=== PATIENT | female | born 1975 | race Two or more races ===

== ENCOUNTER 2018-03-11 07:29 | Emergency (ER) | payer SELFPAY ==
[2018-03-11] MEDS ORDERED: Sodium Chloride 0.9% 500 ML IV ONE (07:49)
[2018-03-11] MEDS ORDERED: Acetaminophen 325 MG Tab PO ONE (07:51)
--- NOTE | 2018-03-11 07:57 | EDM.PDOC ---
ED HPI GENERAL MEDICAL PROBLEM - General Chief Complaint: Neurological Problem Stated Complaint: NUMBNESS OF LEFT SIDE Time Seen by Provider: 03/11/18 07:32 Source of Information: Reports: Patient History Limitations: Reports: No Limitations - History of Present Illness INITIAL COMMENTS - FREE TEXT/NARRATIVE: History of present illness: []She has history of hypertension that is partially treated. He was given a prescription for hydrochlorothiazide by her primary doctor and told her to take it if she feels like her blood pressure is high. 3 days ago she felt pounding in her chest took her blood pressure and it was 180/100 so she took one 12.5 mg tablet. Patient states she felt better the next day so she continues to take the 12.5 mg tablet the next day. Her blood pressure has remained in the 140s/ 90s. She took 2 tablets yesterday and awoke this morning with a left sided headache. Patient states she feels some swelling in her left cheek and is concerned she may be having a stroke. Review of systems: As per history of present illness and below otherwise all systems reviewed and negative. Past medical history: As per history of present illness and as reviewed below otherwise noncontributory. Surgical history: As per history of present illness and as reviewed below otherwise noncontributory. Social history: No reported history of drug or alcohol abuse. Family history: As per history of present illness and as reviewed below otherwise noncontributory. Physical exam: General: Well developed, well nourished in NAD. speech clear HEENT: Atraumatic, normocephalic, pupils reactive, negative for conjunctival pallor or scleral icterus, mucous membranes moist, throat clear, neck supple, nontender, trachea midline. Lungs: Clear to auscultation, breath sounds equal bilaterally, chest nontender. Heart: S1S2, regular, negative for clicks, rubs, or JVD. Abdomen: Soft, nondistended, nontender. Negative for masses or hepatosplenomegaly. Negative for costovertebral tenderness. Pelvis: Stable nontender. Genitourinary: Deferred. Rectal: Deferred. Extremities: Atraumatic, negative for cords or calf pain. Neurovascular unremarkable. Neuro: Awake, alert, oriented. Cranial nerves II through XII unremarkable. Cerebellum unremarkable. Motor and sensory unremarkable throughout. Exam nonfocal. Equal strength bilaterally, lower extremities diminished slightly Skin:warm and dry Diagnostics: EKG, CBC, chemistry, troponin all negative Therapeutics: IV fluids ED Course: Unremarkable Impression: High blood pressure Prescriptions: None Plan: Definitive disposition and diagnosis as appropriate pending reevaluation and review of above. Left Headache Pain Score (Numeric/FACES): 4 - Related Data Allergies Allergy/AdvReac Type Severity Reaction Status Date / Time No Known Allergies Allergy Verified 03/11/18 07:46 Home Meds: Home Meds . [No Known Home Meds] 03/11/18 [History] ED ROS GENERAL - Review of Systems Review Of Systems: ROS reveals no pertinent complaints other than HPI. ED EXAM, GENERAL - Physical Exam Exam: See Below (See history of present illness) Course - Vital Signs Last Recorded V/S: Last Vital Signs Temp 97.5 F 03/11/18 07:40 Pulse 108 H 03/11/18 07:40 Resp 18 03/11/18 07:40 BP 148/95 H 03/11/18 07:40 Pulse Ox 97 03/11/18 07:40 - Orders/Labs/Meds Orders: Active Orders 24 hr Category Date Time Status EKG Documentation Completion [RC] STAT Care 03/11/18 07:37 Active EKG Documentation Completion [RC] STAT Care 03/11/18 07:49 Inactive Sodium Chloride 0.9% [Normal Saline] 500 ml Med 03/11/18 08:15 Active IV .BOLUS Medication Orders Sodium Chloride (Normal Saline) 500 mls @ 999 mls/hr IV .BOLUS ROSA Last Admin: 03/11/18 08:05 Dose: 999 mls/hr Labs: Laboratory Tests 03/11/18 03/11/18 Range/Units 07:58 07:58 WBC 8.14 (4.0-11.0) K/uL RBC 4.61 (4.30-5.90) M/uL Hgb 14.3 (12.0-16.0) g/dL Hct 40.4 (36.0-46.0) % MCV 87.6 (80.0-98.0) fL MCH 31.0 (27.0-32.0) pg MCHC 35.4 (31.0-37.0) g/dL RDW Std Deviation 41.2 (28.0-62.0) fl RDW Coeff of Guillermo 13 (11.0-15.0) % Plt Count 223 (150-400) K/uL MPV 10.40 (7.40-12.00) fL Neut % (Auto) 60.1 (48.0-80.0) % Lymph % (Auto) 34.6 (16.0-40.0) % [place] % (Auto) 4.2 (0.0-15.0) % Eos % (Auto) 0.7 (0.0-7.0) % Baso % (Auto) 0.4 (0.0-1.5) % Neut # (Auto) 4.9 (1.4-5.7) K/uL Lymph # (Auto) 2.8 H (0.6-2.4) K/uL [place] # (Auto) 0.3 (0.0-0.8) K/uL Eos # (Auto) 0.1 (0.0-0.7) K/uL Baso # (Auto) 0.0 (0.0-0.1) K/uL Nucleated RBC % 0.0 /100WBC Nucleated RBCs # 0 K/uL Sodium 135 L (136-145) mmol/L Potassium 3.5 (3.5-5.1) mmol/L Chloride 100 (98-107) mmol/L Carbon Dioxide 23.8 (21.0-32.0) mmol/L BUN 19 H (7.0-18.0) mg/dL Creatinine 0.9 (0.6-1.0) mg/dL Est Cr Clr Drug Dosing TNP Estimated GFR (MDRD) > 60.0 ml/min Glucose 102 (74-106) mg/dL Calcium 9.8 (8.5-10.1) mg/dL Total Bilirubin 0.8 (0.2-1.0) mg/dL AST 12 L (15-37) IU/L ALT 16 (14-63) IU/L Alkaline Phosphatase 98 (46-116) U/L Troponin I < 0.050 (0.000-0.056) ng/mL Total Protein 8.4 H (6.4-8.2) g/dL Albumin 4.0 (3.4-5.0) g/dL Globulin 4.4 H (2.0-3.5) g/dL Albumin/Globulin Ratio 0.9 L (1.3-2.8) Meds: Medications Generic Name Dose Route Start Last Admin Trade Name Freq PRN Reason Stop Dose Admin Sodium Chloride 500 mls @ 999 mls/hr 03/11/18 08:15 03/11/18 08:05 Normal Saline IV 999 mls/hr .BOLUS ROSA Administration Discontinued Medications Generic Name Dose Route Start Last Admin Trade Name Freq PRN Reason Stop Dose Admin Acetaminophen 650 mg 03/11/18 07:51 03/11/18 08:05 Tylenol PO 03/11/18 07:52 650 mg NOW ONE Administration Sodium Chloride 500 mls @ 999 mls/hr 03/11/18 07:49 03/11/18 08:04 Normal Saline IV 03/11/18 08:19 Not Given .Bolus ONE Departure - Departure Time of Disposition: 08:42 Disposition: Home, Self-Care 01 Condition: Good Clinical Impression: High blood pressure Qualifiers: Hypertension type: unspecified Qualified Code(s): I10 - Essential (primary) hypertension Forms: ED Department Discharge Additional Instructions: The following information is given to patients seen in the emergency department who are being discharged to home. This information is to outline your options for follow-up care. We provide all patients seen in our emergency department with a follow-up referral. The need for follow-up, as well as the timing and circumstances, are variable depending upon the specifics of your emergency department visit. If you don't have a primary care physician on staff, we will provide you with a referral. We always advise you to contact your personal physician following an emergency department visit to inform them of the circumstance of the visit and for follow-up with them and/or the need for any referrals to a consulting specialist. The emergency department will also refer you to a specialist when appropriate. This referral assures that you have the opportunity for follow-up care with a specialist. All of these measure are taken in an effort to provide you with optimal care, which includes your follow-up. Under all circumstances we always encourage you to contact your private physician who remains a resource for coordinating your care. When calling for follow-up care, please make the office aware that this follow-up is from your recent emergency room visit. If for any reason you are refused follow-up, please contact the [facility] Emergency Department at and asked to speak to the emergency department charge nurse. Follow-up with primary care for further treatment of blood pressure. [facility] [address] [place] [id number] - My Orders Last 24 Hours: My Active Orders 03/11/18 07:37 EKG Documentation Completion [RC] STAT 03/11/18 07:49 EKG Documentation Completion [RC] STAT 03/11/18 08:15 Sodium Chloride 0.9% [Normal Saline] 500 ml IV .BOLUS - Assessment/Plan Last 24 Hours: My Active Orders 03/11/18 07:37 EKG Documentation Completion [RC] STAT 03/11/18 07:49 EKG Documentation Completion [RC] STAT 03/11/18 08:15 Sodium Chloride 0.9% [Normal Saline] 500 ml IV .BOLUS
[2018-03-11] MEDS ORDERED: Sodium Chloride 0.9% 500 ML IV SCH (08:15)
[2018-03-11 08:25] LABS: CHLORIDE,CL 100 mmol/L (98-107); SODIUM,NA 135 mmol/L (136-145)
== END 2018-03-11 08:55 | disposition home or self-care (01) ==
LOC: MW.ED 07:29
DX: I10 Essential (primary) hypertension (principal)
CPT/HCPCS: 36415; 80053; 84484; 85025; 93005; 96360; 99284; A9270; J7040; 99283